=== PATIENT | male | born 1995 | race Caucasian/White ===

== ENCOUNTER 2022-05-30 22:52 | Observation (INO) | payer BC ==
[~2022-05-30] VITALS: Ht 190.5 cm; Wt 108.9 kg
[2022-05-30] MEDS ORDERED: ONDANSETRON HCL INJ 2MG/ML 2ML 2 MG/ML VIAL IV STA (23:17)
[2022-05-30] MEDS ORDERED: Morphine 4mg INJECTION 4 MG/ML INJ IV ONE (23:30)
[2022-05-31] VITALS (9 sets, daily range): BP systolic 115–142; BP diastolic 63–82
[2022-05-31] MEDS ORDERED: SODIUM CHLORIDE 0.9% 1000ML 1,000 ML IV SCH (00:15)
[2022-05-31] MEDS ORDERED: FAMOTIDINE 20 MG/2 ML VIAL IV STA (00:16)
[2022-05-31] MEDS: SODIUM CHLORIDE 0.9% 1000ML 1,000 ML IV SCH ×2 (01:56→10:36)
[2022-05-31] MEDS ORDERED: NOVOLOG100 UNITS1 (02:29)
[2022-05-31] MEDS ORDERED: ONDANSETRON HCL INJ 2MG/ML 2ML 2 MG/ML VIAL IV PRN (03:00)
[2022-05-31] MEDS ORDERED: Morphine 2mg Syringe 2 MG/ML SYR IV PRN (03:00)
[2022-05-31] MEDS ORDERED: DEXTROSE 50% SYRINGE 50 ML IV PRN (10:30)
[2022-05-31 11:08] LABS: CHOL/HDL RATIO 4.2 (3.9-4.7)
[2022-05-31 11:12] LABS: ALBUMIN 3.8 g/dL (3.5-5.0); BILIRUBIN,DIRECT 0.1 mg/dL (0.0-0.5)
[2022-05-31] MEDS: INSULIN REGULAR, HUMAN 100 UNIT/1 ML SQ SCH ×3 (11:30→21:00)
[2022-05-31] MEDS: FAMOTIDINE 20 MG/2 ML VIAL IV SCH (16:20)
[2022-06-01 00:09] VITALS: BP 126/77
[2022-06-01] MEDS: SODIUM CHLORIDE 0.9% 1000ML 1,000 ML IV SCH ×2 (02:24→09:29)
[2022-06-01 03:47] VITALS: BP 117/75
[2022-06-01] MEDS: INSULIN REGULAR, HUMAN 100 UNIT/1 ML SQ SCH (07:30)
[2022-06-01 07:35] VITALS: BP 136/76
[2022-06-01 08:52] LABS: BASOPHILS % 0.5 % (0.0-1.0); EOSINOPHILS # (AUTO) 0.1 (0.0-0.4); EOSINOPHILS % 3.3 % (0.0-6.0); HEMATOCRIT 46.9 % (38.2-49.6); HEMOGLOBIN 14.7 g/dL (14.0-18.0); LYMPHOCYTES # (AUTO) 0.9 (1.0-3.2); LYMPHOCYTES % 21.7 % (18.0-39.1); MEAN CORPUSCULAR HEMOGLOBIN 28.9 pg (28-32); MEAN CORPUSCULAR HGB CONC 31.3 g/dL (31-35); MEAN CORPUSCULAR VOLUME 92.1 fL (81-99); MONOCYTES # (AUTO) 0.3 (0.2-0.8); MONOCYTES % 6.8 % (4.4-11.3); NEUTROPHILS # (AUTO) 2.9 (2.1-6.9); NEUTROPHILS % 67.5 % (38.7-80.0); PLATELET COUNT 249 x10e3/uL (140-360); RED BLOOD COUNT 5.09 x10e6/uL (4.3-5.7); RED CELL DISTRIBUTION WIDTH 13.1 % (11.7-14.4)
[2022-06-01] MEDS: FAMOTIDINE 20 MG/2 ML VIAL IV SCH (09:00)
[2022-06-01 09:13] LABS: ANION GAP 12.4 mmol/L (8-16); CALCIUM 9.1 mg/dL (8.4-10.2); CREATININE, SERUM 0.93 mg/dL (0.72-1.25); MAGNESIUM 1.9 MG/DL (1.3-2.1); POTASSIUM 4.4 mmol/L (3.5-5.1)
[2022-06-01] MEDS ORDERED: TYLENOL325 MG PO (11:19)
[2022-06-01] MEDS ORDERED: ONDANSETRON ODT4 MG PO (11:19)
[2022-06-01] MEDS ORDERED: FAMOTIDINE20 MG PO (11:19)
[2022-06-01 11:28] VITALS: BP 126/73
[2022-06-01 11:44] VITALS: BP 126/73
== END 2022-06-01 12:44 | disposition home or self-care (01) ==
LOC: FSED 23:18 → ERHOLD 05-31 00:17 → MED/SURG 05-31 01:29
PROVIDERS: ADMIT Internal Medicine; ATTEND Internal Medicine
DX: M62.82 Rhabdomyolysis (principal); E10.8 Type 1 diabetes mellitus with unspecified complications; E66.09 Other obesity due to excess calories; Z68.30 Body mass index [BMI] 30.0-30.9, adult; Z20.822 Contact with and (suspected) exposure to COVID-19; Z85.72 Personal history of non-Hodgkin lymphomas
CPT/HCPCS: 36415 ×2; 74176; 76700; 80048 ×2; 80061; 80076; 81003; 82550 ×2; 82948 ×2; 83036; 83690; 83735; 84100; 85025 ×2; 94799 ×2; 96374; 96376; 99284; G0378 ×2; J7030 ×2; U0002; J1817; J2270